=== PATIENT | male | born 1975 | race American Indian/Alaskan Native ===

== ENCOUNTER 2016-08-09 21:40 | Emergency (ER) | payer MEDICARE ==
[2016-08-10 00:39] LABS: Hematocrit 36.7 % (35.5-45.6); Hemoglobin 12.8 gm/dl (11.8-15.2); Mean Corpuscular HGB Conc 35 % (32-34); Mean Corpuscular Hemoglobin 37 pg (28-32); Mean Corpuscular Volume 107 fl (84-94); Platelet Count 140 K/mm3 (140-440); Red Blood Count 3.44 M/mm3 (3.65-5.03); Red Cell Distribution Width 13.7 % (13.2-15.2); White Blood Count 5.9 K/mm3 (4.5-11.0)
[2016-08-10 00:57] LABS: Albumin 3.6 g/dL (3.9-5); BUN/Creatinine Ratio 7.64; Bilirubin,Total 2.8 mg/dL (0.1-1.2); Calcium 9.1 mg/dL (8.4-10.2); Chloride 100.6 mmol/L (98-107); Potassium 4.6 mmol/L (3.6-5.0); Total Protein 7.1 g/dL (6.3-8.2)
--- NOTE | 2016-08-10 01:02 | Emergency Department Report ---
ED Altered Mental Status HPI - General Chief Complaint: Medical Clearance Stated Complaint: LETHARGIC Time Seen by Provider: 08/09/16 23:45 Source: patient, EMS Mode of arrival: Stretcher Limitations: No Limitations - History of Present Illness Initial Comments: 41-year-old male with a past medical history of HIV presents to Hospital from the [facility] after staff called EMS because patient was lethargic. Patient states he took his prescribed night meds Seroquel, trazodone, and Ambien. He denies taking any medications and has not been prescribed to him or taking an overdose. Patient is sleepy and denies any complaints currently. No pain reported. No aggravating or alleviating factors reported. - Related Data Previous Rx's Medication Instructions Recorded Last Taken Type Nitrofurantoin Coryell/M-Cryst 100 mg PO Q12HR #10 capsule 08/10/16 Unknown Rx [Macrobid CAP] Allergies Allergy/AdvReac Type Severity Reaction Status Date / Time orange juice Allergy Unknown Verified 08/09/16 22:53 ED Review of Systems ROS: Stated complaint: LETHARGIC Other details as noted in HPI Comment: All other systems reviewed and negative Other: Constitutional: No fevers chills Eyes: No eye pain visual changes ENT: No ear pain or throat pain Neck: Denies pain Respiratory: Denies cough wheezing shortness of breath Cardiovascular: Denies chest pain, palpitations, syncope GI: Denies abdominal pain, nausea, vomiting, diarrhea : Denies dysuria, urinary frequency, or urgency Musculoskeletal: Denies back pain Skin: Denies rash, lesions, erythema Neurologic: Denies headache, numbness, weakness Psychiatric: Denies suicidal ideation, hallucinations ED Past Medical Hx - Past Medical History Hx HIV: Yes Additional medical history: history of CMV - Surgical History Past Surgical History?: No - Social History Smoking Status: Current Every Day Smoker Substance Use Type: None - Medications Home Medications: Home Medications Medication Instructions Recorded Confirmed Last Taken Type Nitrofurantoin Coryell/M-Cryst 100 mg PO Q12HR #10 capsule 08/10/16 Unknown Rx [Macrobid CAP] ED Physical Exam - General Limitations: No Limitations - Other Other exam information: General: No limitations, patient is alert in no acute distress Head exam: Atraumatic, normocephalic Eyes exam: Normal appearance, pupils equal reactive to light, extraocular movements intact ENT: Moist mucous membrane, normal oropharynx Neck exam: Normal inspection, full range of motion, no meningismus nontender Respiratory exam: Clear to auscultation bilateral, no wheezes, rales, crackles Cardiovascular: Normal rate and rhythm, normal heart sounds Abdomen: Soft, nondistended, and nontender, with normal bowel sounds, no rebound, or guarding Extremity: Full range of motion normal inspection no deformity Back: Normal Inspection, full range of motion, no tenderness Neurologic: Drowsy but arousable. Oriented 3. Cranial nerves intact, no focal motor or gross sensory deficit Psychiatric: normal affect, normal mood Skin: Warm, dry, intact gross ED Course Vital Signs 08/09/16 08/09/16 08/09/16 22:15 22:53 23:15 Temperature 97.8 F Pulse Rate 89 89 85 Respiratory 16 16 16 Rate Blood Pressure 108/78 Blood Pressure 108/78 100/66 [Left] O2 Sat by Pulse 96 97 97 Oximetry 08/10/16 02:30 Temperature Pulse Rate 80 Respiratory 18 Rate Blood Pressure Blood Pressure 109/70 [Left] O2 Sat by Pulse 98 Oximetry - Reevaluation(s) Reevaluation #1: 08/10/16 05:27 Patient became alert during ED stay and was able to ambulate in the ED without difficulty - Lab Data Result diagrams: 08/10/16 00:26 08/10/16 00:26 Lab Results 08/10/16 08/10/16 08/10/16 Range/Units 00:26 00:26 00:26 WBC 5.9 (4.5-11.0) K/mm3 RBC 3.44 L (3.65-5.03) M/mm3 Hgb 12.8 (11.8-15.2) gm/dl Hct 36.7 (35.5-45.6) % MCV 107 H (84-94) fl MCH 37 H (28-32) pg MCHC 35 H (32-34) % RDW 13.7 (13.2-15.2) % Plt Count 140 (140-440) K/mm3 Sodium 136 L (137-145) mmol/L Potassium 4.6 (3.6-5.0) mmol/L Chloride 100.6 (98-107) mmol/L Carbon Dioxide 24 (22-30) mmol/L Anion Gap 16 mmol/L BUN 13 (9-20) mg/dL Creatinine 1.7 H (0.8-1.5) mg/dL Estimated GFR 54 ml/min BUN/Creatinine Ratio 7.64 % Glucose 78 (75-100) mg/dL Calcium 9.1 (8.4-10.2) mg/dL Total Bilirubin 2.8 H (0.1-1.2) mg/dL AST 44 H (5-40) units/L ALT 33 (7-56) units/L Alkaline Phosphatase 91 (35-129) units/L Ammonia 31.0 (25-60) umol/L Total Protein 7.1 (6.3-8.2) g/dL Albumin 3.6 L (3.9-5) g/dL Albumin/Globulin Ratio 1.0 % Urine Color (Yellow) Urine Turbidity (Clear) Urine pH (5.0-7.0) Ur Specific Burr (1.003-1.030) Urine Protein (Negative) mg/dL Urine Glucose (UA) (Negative) mg/dL Urine Ketones (Negative) mg/dL Urine Blood (Negative) Urine Nitrite (Negative) Urine Bilirubin (Negative) Urine Urobilinogen (<2.0) mg/dL Ur Leukocyte Esterase (Negative) Urine WBC (Auto) (0.0-6.0) /HPF Urine RBC (Auto) (0.0-6.0) /HPF Amorphous Crystals Urine Mucus /HPF Salicylates (2.8-20.0) mg/dL Urine Opiates Screen Urine Methadone Screen Acetaminophen (10.0-30.0) ug/mL Ur Barbiturates Screen Ur Phencyclidine Scrn Ur Amphetamines Screen U Benzodiazepines Scrn Urine Cocaine Screen U Marijuana (THC) Screen Drugs of Abuse Note Plasma/Serum Alcohol (0-0.07) gm% 08/10/16 08/10/16 08/10/16 Range/Units 00:26 00:26 00:26 WBC (4.5-11.0) K/mm3 RBC (3.65-5.03) M/mm3 Hgb (11.8-15.2) gm/dl Hct (35.5-45.6) % MCV (84-94) fl MCH (28-32) pg MCHC (32-34) % RDW (13.2-15.2) % Plt Count (140-440) K/mm3 Sodium (137-145) mmol/L Potassium (3.6-5.0) mmol/L Chloride (98-107) mmol/L Carbon Dioxide (22-30) mmol/L Anion Gap mmol/L BUN (9-20) mg/dL Creatinine (0.8-1.5) mg/dL Estimated GFR ml/min BUN/Creatinine Ratio % Glucose (75-100) mg/dL Calcium (8.4-10.2) mg/dL Total Bilirubin (0.1-1.2) mg/dL AST (5-40) units/L ALT (7-56) units/L Alkaline Phosphatase (35-129) units/L Ammonia (25-60) umol/L Total Protein (6.3-8.2) g/dL Albumin (3.9-5) g/dL Albumin/Globulin Ratio % Urine Color (Yellow) Urine Turbidity (Clear) Urine pH (5.0-7.0) Ur Specific Burr (1.003-1.030) Urine Protein (Negative) mg/dL Urine Glucose (UA) (Negative) mg/dL Urine Ketones (Negative) mg/dL Urine Blood (Negative) Urine Nitrite (Negative) Urine Bilirubin (Negative) Urine Urobilinogen (<2.0) mg/dL Ur Leukocyte Esterase (Negative) Urine WBC (Auto) (0.0-6.0) /HPF Urine RBC (Auto) (0.0-6.0) /HPF Amorphous Crystals Urine Mucus /HPF Salicylates < 0.3 L (2.8-20.0) mg/dL Urine Opiates Screen Urine Methadone Screen Acetaminophen < 15.0 (10.0-30.0) ug/mL Ur Barbiturates Screen Ur Phencyclidine Scrn Ur Amphetamines Screen U Benzodiazepines Scrn Urine Cocaine Screen U Marijuana (THC) Screen Drugs of Abuse Note Plasma/Serum Alcohol < 0.01 (0-0.07) gm% 08/10/16 08/10/16 Range/Units 02:08 02:08 WBC (4.5-11.0) K/mm3 RBC (3.65-5.03) M/mm3 Hgb (11.8-15.2) gm/dl Hct (35.5-45.6) % MCV (84-94) fl MCH (28-32) pg MCHC (32-34) % RDW (13.2-15.2) % Plt Count (140-440) K/mm3 Sodium (137-145) mmol/L Potassium (3.6-5.0) mmol/L Chloride (98-107) mmol/L Carbon Dioxide (22-30) mmol/L Anion Gap mmol/L BUN (9-20) mg/dL Creatinine (0.8-1.5) mg/dL Estimated GFR ml/min BUN/Creatinine Ratio % Glucose (75-100) mg/dL Calcium (8.4-10.2) mg/dL Total Bilirubin (0.1-1.2) mg/dL AST (5-40) units/L ALT (7-56) units/L Alkaline Phosphatase (35-129) units/L Ammonia (25-60) umol/L Total Protein (6.3-8.2) g/dL Albumin (3.9-5) g/dL Albumin/Globulin Ratio % Urine Color Yellow (Yellow) Urine Turbidity Clear (Clear) Urine pH 5.0 (5.0-7.0) Ur Specific Burr 1.011 (1.003-1.030) Urine Protein 30 mg/dl (Negative) mg/dL Urine Glucose (UA) Neg (Negative) mg/dL Urine Ketones Neg (Negative) mg/dL Urine Blood Lg (Negative) Urine Nitrite Neg (Negative) Urine Bilirubin Neg (Negative) Urine Urobilinogen < 2.0 (<2.0) mg/dL Ur Leukocyte Esterase Tr (Negative) Urine WBC (Auto) 48.0 H (0.0-6.0) /HPF Urine RBC (Auto) > 182.0 (0.0-6.0) /HPF Amorphous Crystals Few Urine Mucus Few /HPF Salicylates (2.8-20.0) mg/dL Urine Opiates Screen Presumptive negative Urine Methadone Screen Presumptive negative Acetaminophen (10.0-30.0) ug/mL Ur Barbiturates Screen Presumptive negative Ur Phencyclidine Scrn Presumptive negative Ur Amphetamines Screen Presumptive negative U Benzodiazepines Scrn Presumptive negative Urine Cocaine Screen Presumptive negative U Marijuana (THC) Screen Presumptive negative Drugs of Abuse Note Disclamer Plasma/Serum Alcohol (0-0.07) gm% - Medical Decision Making Suspect the patient's drowsiness was caused by his evening medications which are all sedating. Patient has renal sufficiency no previous last for comparison outpatient follow-up will be encouraged. Positive UTI identified and will be treated with Macrobid first dose - Differential Diagnosis overdose, adverse drug reaction, encephalopathy Critical Care Time: No Critical care attestation.: If time is entered above; I have spent that time in minutes in the direct care of this critically ill patient, excluding procedure time. ED Disposition Clinical Impression: Sedated due to medication, Renal insufficiency, HIV (human immunodeficiency virus infection) UTI (urinary tract infection) Qualifiers: Urinary tract infection type: site unspecified Hematuria presence: with hematuria Qualified Code(s): N39.0 - Urinary tract infection, site not specified ; R31.9 - Hematuria, unspecified Disposition: DISCHARGED TO HOME OR SELFCARE Is pt being admited?: No Does the pt Need Aspirin: No Condition: Stable Instructions: Urinary Tract Infection in Men (ED), Impaired Kidney Function (ED ) Additional Instructions: Follow-up with the kidney doctor provided for further evaluation of your renal dysfunction. Take the medication as prescribed for your urinary tract infection. Return if symptoms worsen. Prescriptions: Nitrofurantoin Coryell/M-Cryst [Macrobid CAP] 100 mg PO Q12HR #10 capsule Referrals: AUBREY SORENSON MD [Staff Physician] - 3-5 Days (Infectious disease) MICHAEL KWAN MD [Staff Physician] - 3-5 Days (kidney doctor) PRIMARY MD PATRICIA [Primary Care Provider] - 3-5 Days Time of Disposition: 05:29
[2016-08-10 02:17] LABS: Urine Drugs of Abuse Note Disclamer
[2016-08-10 02:42] LABS: Bilirubin,Urine NEG (Negative); Blood,Urine LG (Negative); Ketones,Urine NEG (Negative); Leukocyte Esterase,Urine TR (Negative); Mucus,Urine FEW /HPF; Nitrite,Urine NEG (Negative); Urobilinogen,Urine < 2.0 mg/dL (<2.0)
[2016-08-10 02:45] LABS: RBC,Urine > 182.0 /HPF (0.0-6.0)
[2016-08-10 03:18] VITALS: BP 109/70
[2016-08-10] MEDS ORDERED: MACROBID PO ONE (05:26)
== END 2016-08-10 05:44 | disposition home or self-care (01) ==
LOC: ED 21:40
DX: F13.10 Sedative, hypnotic or anxiolytic abuse, uncomplicated (principal); N28.9 Disorder of kidney and ureter, unspecified; N39.0 Urinary tract infection, site not specified; Z21 Asymptomatic human immunodeficiency virus [HIV] infection status; F17.200 Nicotine dependence, unspecified, uncomplicated
CPT/HCPCS: 36415; 80053; 81001; 82140; 85027; 99284; G0479; G0480; 80307; 80320